=== PATIENT | male | born 1970 | race Caucasian/White ===

== ENCOUNTER 2021-04-09 09:30 | Inpatient (IN) | payer OTHER ==
[~2021-04-09] VITALS: Ht 177.8 cm; Wt 118.5 kg
--- NOTE | 2021-04-09 09:49 | NUR ---
PT TO ROOM VIA WC AND ASSISTED TO BR.
--- NOTE | 2021-04-09 10:00 | NUR ---
URINE COLLECTED/SENT TO LAB. 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 IV PLACED, BC X 1 DRAWN WITH START. IV UNABLE TO ADVANCE AND COLLAPSED WITH FLUSH-D/C'D DRESSING IN PLACE. WARM TOWELS TO FOOT APPLIED TO CLEAN. CALL LIGHT WITHIN REACH.
--- NOTE | 2021-04-09 10:21 | NUR ---
XR AT BS.
[2021-04-09] MEDS ORDERED: SODIUM CHLORIDE FLUSH 10ML SYR IVF ONE (10:30)
[2021-04-09 10:52] LABS: MICROSCOPIC INDICATED
[2021-04-09 11:02] LABS: INTERNATIONAL NORMALIZED RATIO 1.19 (0.93-1.1); PROTHROMBIN TIME 12.6 Seconds (9.6-11.5)
[2021-04-09 11:08] LABS: BASOPHILS % (AUTO) 1 % (0-1); EOSINOPHILS % (AUTO) 4 % (1-7); LYMPHOCYTES % (AUTO) 7 % (22-44); MEAN CORPUSCULAR HEMOGLOBIN 30.2 pg (27.5-34.5); MEAN CORPUSCULAR HGB CONC 33.8 g/dL (33.2-36.2); MEAN PLATELET VOLUME 8.9 fL (7.4-10.4); MONOCYTES % (AUTO) 10 % (2-9); NEUTROPHILS % (AUTO) 79 % (42-75); PLATELET COUNT 53 x10^3/uL (130-400); RED CELL DISTRIBUTION WIDTH 14.4 % (9.4-14.8)
[2021-04-09 11:20] LABS: ALANINE AMINOTRANSFERASE 46 U/L (12-78); ALBUMIN 3.4 g/dL (3.4-5.0); ANION GAP 12 mmol/L (5-15); CALCIUM 8.5 mg/dL (8.5-10.1); CHLORIDE 96 mmol/L (98-107); CREATININE 0.73 mg/dL (0.7-1.3)
[2021-04-09 11:23] LABS: ALKALINE PHOSPHATASE 87 U/L (45-117); BILIRUBIN,TOTAL 3.4 mg/dL (0.2-1.0); CREATINE KINASE, TOTAL 110 U/L (39-308); TOTAL PROTEIN 6.9 g/dL (6.4-8.2)
--- NOTE | 2021-04-09 12:05 | NUR ---
MUSCLE SPASMS TO R LEG, WARM COMPRESS APPLIED AND PT ASSISTED IN STRETCHING. PT TO CT.
[2021-04-09] MEDS ORDERED: ANTIVENIN CROTALIDAE FAB IVPB ONE (12:30)
[2021-04-09] MEDS ORDERED: SODIUM CHLORIDE IVPB ONE (12:30)
[2021-04-09] MEDS ORDERED: SERT100T32 PO (12:32)
[2021-04-09] MEDS ORDERED: CARV6.252 PO (12:32)
[2021-04-09] MEDS ORDERED: HYDR50TA99 PO (12:37)
[2021-04-09] MEDS ORDERED: TAMS-11 PO (12:37)
[2021-04-09] MEDS ORDERED: CYCL10TA2 PO (12:37)
--- NOTE | 2021-04-09 12:45 | NUR ---
MED REQUEST TO PHARMACY.
--- NOTE | 2021-04-09 13:55 | NUR ---
IV PLACED, ANTIVENIN INFUSING. CLOSE MONITORING FOR 15 MINUTES.
[2021-04-09] MEDS ORDERED: CEFTRIAXONE 2 GM in DEXTROSE 5% 50 ML IVPB ONE (14:00)
--- NOTE | 2021-04-09 14:11 | NUR ---
NO S/S OF ADVERSE REACTION OR ALLERGY. RATE INCREASED TO 250CC/HR. CALL LIGHT WITHIN REACH.
[2021-04-09] MEDS ORDERED: KETOROLAC 30 MG/1 ML IV PRN (15:00)
[2021-04-09] MEDS ORDERED: DOXYCYCLINE 100MG TABLET PO ONE (15:00)
[2021-04-09] MEDS ORDERED: HYDROcodone/APAP 5/325 TABLET PO PRN (15:00)
[2021-04-09] MEDS: HEPARIN 5,000 UNITS/ML, 1ML SQ SCH ×2 (15:00→22:27)
[2021-04-09] MEDS ORDERED: morphine SULFATE 10 MG/ML, 1ML IVPush PRN (15:00)
[2021-04-09] MEDS ORDERED: VANCOMYCIN PER PHARMACY MC PRN (15:00)
[2021-04-09] MEDS ORDERED: ONDANSETRON 2MG/ML, 2ML IVPush PRN (15:00)
[2021-04-09] MEDS ORDERED: SODIUM CHLORIDE FLUSH 10ML SYR IVF PRN (15:00)
[2021-04-09] MEDS ORDERED: ACETAMINOPHEN 325 MG TABLET PO PRN (15:00)
--- NOTE | 2021-04-09 15:23 | NUR ---
REPORT FROM CHASITY VELAZCO
--- NOTE | 2021-04-09 15:26 | NUR ---
REPORT TO WENDY QUINTERO READY FOR TRANSPORT TO FLOOR FOLLOWING SPLINT PLACEMENT. REPORT TO
[2021-04-09] MEDS ORDERED: VANCOMYCIN 2,500 MG in SODIUM CHLORIDE 0.9% 500 ML IV ONE ×2 (15:30→20:30)
[2021-04-09] MEDS ORDERED: DOXYCYCLINE 100MG TABLET ONE (15:46)
--- NOTE | 2021-04-09 16:06 | NUR ---
[employer]ION [employer] CALLED FOR UPDATE, CASE # [id number]
[2021-04-09] MEDS ORDERED: PHARMACOKINETIC MONITORING MC PRN (17:30)
[2021-04-09] MEDS ORDERED: PHARMACOKINETIC CONSULTATION MC ONE (17:30)
[2021-04-09] MEDS ORDERED: THIAMINE 200 MG in DEXTROSE 5% 50 ML IVPB ONE (19:00)
[2021-04-09] MEDS ORDERED: CHLORDIAZEPOXIDE 25 MG CAPSULE PO SCH (19:00)
[2021-04-09] MEDS ORDERED: LORazepam 1MG TABLET PO PRN (19:00)
[2021-04-09] MEDS ORDERED: FOLIC ACID 1 MG TABLET PO ONE (19:00)
[2021-04-09] MEDS ORDERED: LORazepam 2 MG/ML, 1ML IV PRN ×3 (19:00)
[2021-04-09 19:08] VITALS: BP 122/80
[2021-04-09] MEDS: CEFEPIME 1 GM in DEXTROSE 5% 50 ML IV SCH (19:49)
[2021-04-09] MEDS: CHLORDIAZEPOXIDE 25 MG CAPSULE PO SCH (20:00)
[2021-04-10] MEDS: LORazepam 1MG TABLET PO PRN ×4 (00:30→22:32)
[2021-04-10] MEDS ORDERED: CYCLOBENZAPRINE 10 MG TABLET PO PRN (01:00)
[2021-04-10] MEDS: CHLORDIAZEPOXIDE 25 MG CAPSULE PO SCH ×3 (01:51→13:53)
[2021-04-10 02:08] VITALS: BP 133/87
[2021-04-10] MEDS: hydrOXyzine 50MG TABLET PO PRN (03:22)
[2021-04-10] MEDS: CEFEPIME 1 GM in DEXTROSE 5% 50 ML IV SCH ×2 (04:06→13:28)
[2021-04-10] MEDS ORDERED: VANCOMYCIN 2,000 MG in SODIUM CHLORIDE 0.9% 500 ML IV SCH ×2 (05:00→08:30)
[2021-04-10 05:58] LABS: BASOPHILS % (AUTO) 0 % (0-1); EOSINOPHILS % (AUTO) 4 % (1-7); LYMPHOCYTES % (AUTO) 12 % (22-44); MEAN CORPUSCULAR HGB CONC 34.2 g/dL (33.2-36.2); MEAN PLATELET VOLUME 9.5 fL (7.4-10.4); MONOCYTES % (AUTO) 11 % (2-9); NEUTROPHILS % (AUTO) 73 % (42-75); PLATELET COUNT 50 x10^3/uL (130-400); RED BLOOD COUNT 4.92 x10^6/uL (4.38-5.82); RED CELL DISTRIBUTION WIDTH 14.4 % (9.4-14.8)
[2021-04-10 06:05] LABS: ALBUMIN 3.2 g/dL (3.4-5.0); ANION GAP 7 mmol/L (5-15); CALCIUM 8.4 mg/dL (8.5-10.1); CHLORIDE 99 mmol/L (98-107)
[2021-04-10 06:09] LABS: ALANINE AMINOTRANSFERASE 44 U/L (12-78); ALKALINE PHOSPHATASE 82 U/L (45-117); BILIRUBIN,TOTAL 2.1 mg/dL (0.2-1.0); CREATININE 0.74 mg/dL (0.7-1.3); TOTAL PROTEIN 6.7 g/dL (6.4-8.2)
[2021-04-10] MEDS: HEPARIN 5,000 UNITS/ML, 1ML SQ SCH ×2 (06:38→17:44)
[2021-04-10 07:05] VITALS: BP 115/71
[2021-04-10] MEDS: TAMSULOSIN 0.4 MG CAP.ER.24H PO SCH (08:35)
[2021-04-10] MEDS: MULTIVITAMINS/MINERALS TABLET PO SCH (08:35)
[2021-04-10] MEDS: CARVEDILOL 6.25 MG TABLET PO SCH ×2 (08:35→21:09)
[2021-04-10] MEDS: SERTRALINE 100MG TABLET PO SCH (08:35)
[2021-04-10 14:15] VITALS: BP 116/74
[2021-04-10] MEDS: LORazepam 0.5MG TABLET PO PRN (18:33)
[2021-04-10] MEDS: THIAMINE 100 MG in DEXTROSE 5% 50 ML IVPB SCH (18:33)
[2021-04-10] MEDS ORDERED: CHLORDIAZEPOXIDE 25 MG CAPSULE PO SCH ×2 (19:00→20:30)
[2021-04-10 19:58] VITALS: BP 124/85
[2021-04-10] MEDS: DIAZEPAM 2 MG TABLET PO SCH (21:09)
[2021-04-10] MEDS: HYDROcodone/APAP 5/325 TABLET PO PRN (21:12)
[2021-04-11 01:11] VITALS: BP 135/89
[2021-04-11] MEDS: HEPARIN 5,000 UNITS/ML, 1ML SQ SCH ×3 (01:52→17:59)
[2021-04-11] MEDS: LORazepam 1MG TABLET PO PRN ×4 (01:52→22:03)
[2021-04-11 05:50] LABS: MEAN CORPUSCULAR HEMOGLOBIN 31.1 pg (27.5-34.5); MEAN CORPUSCULAR HGB CONC 34.1 g/dL (33.2-36.2); MEAN PLATELET VOLUME 9.1 fL (7.4-10.4); RED BLOOD COUNT 4.54 x10^6/uL (4.38-5.82); RED CELL DISTRIBUTION WIDTH 14.7 % (9.4-14.8)
[2021-04-11 05:57] LABS: INTERNATIONAL NORMALIZED RATIO 1.11 (0.93-1.1); PROTHROMBIN TIME 11.8 Seconds (9.6-11.5)
[2021-04-11 06:01] LABS: ANION GAP 6 mmol/L (5-15); CALCIUM 8.7 mg/dL (8.5-10.1); CHLORIDE 103 mmol/L (98-107)
[2021-04-11 06:02] LABS: CREATININE 0.67 mg/dL (0.7-1.3)
[2021-04-11 06:03] LABS: PLATELET COUNT 45 x10^3/uL (130-400)
[2021-04-11 06:35] LABS: BAND#(MANUAL) 0.04 x10^3/uL; BANDS%(MANUAL) 2 % (0-7); BASOS#(MANUAL) 0.02 x10^3/uL (0-0.1); BASOS% (MANUAL) 1 % (0-1); EOS#(MANUAL) 0.05 x10^3/uL (0.0-0.4); EOS% (MANUAL) 3 % (1-7); LYMPHS% (MANUAL) 11 % (22-44); SEG#(MANUAL) 1.13 x10^3/uL (1.8-6.8); SEGS% (MANUAL) 63 % (42-75)
[2021-04-11 06:36] LABS: <RBC MORPHOLOGY> NORMAL; MONOS#(MANUAL) 0.31 x10^3/uL (0.3-2.7); MONOS% (MANUAL) 17 % (2-9); REACTIVE LYMPHS # (MANUAL) 0.05 x10^3/uL (0-0); REACTIVE LYMPHS % (MANUAL) 3 % (0-0)
[2021-04-11 06:37] LABS: <PLATELET ESTIMATE> DECREASED; <PLT MORPHOLOGY> NORMAL PLT MORPH
[2021-04-11 07:54] VITALS: BP 120/73
[2021-04-11] MEDS: CARVEDILOL 6.25 MG TABLET PO SCH ×2 (08:17→22:03)
[2021-04-11] MEDS: SERTRALINE 100MG TABLET PO SCH (08:17)
[2021-04-11] MEDS: DIAZEPAM 2 MG TABLET PO SCH ×3 (08:17→22:03)
[2021-04-11] MEDS: LORazepam 0.5MG TABLET PO PRN (08:17)
[2021-04-11] MEDS: TAMSULOSIN 0.4 MG CAP.ER.24H PO SCH (08:17)
[2021-04-11] MEDS: MULTIVITAMINS/MINERALS TABLET PO SCH (08:18)
[2021-04-11 13:37] VITALS: BP 122/86
[2021-04-11] MEDS: POLYETHYLENE GLYCOL 17 GM PACKET PO SCH (16:31)
[2021-04-11] MEDS: SENNA/DOCUSATE TABLET PO SCH ×2 (16:31→22:03)
[2021-04-11] MEDS: CYCLOBENZAPRINE 10 MG TABLET PO PRN (17:59)
[2021-04-11] MEDS: hydrOXyzine 50MG TABLET PO PRN (17:59)
[2021-04-11] MEDS: THIAMINE 100 MG in DEXTROSE 5% 50 ML IVPB SCH (18:35)
[2021-04-11 20:28] VITALS: BP 127/86
[2021-04-12 02:18] VITALS: BP 138/85
[2021-04-12] MEDS: HEPARIN 5,000 UNITS/ML, 1ML SQ SCH ×3 (02:20→18:42)
[2021-04-12] MEDS: LORazepam 0.5MG TABLET PO PRN (02:20)
[2021-04-12 05:23] LABS: MEAN CORPUSCULAR HEMOGLOBIN 30.8 pg (27.5-34.5); MEAN CORPUSCULAR HGB CONC 33.6 g/dL (33.2-36.2); MEAN PLATELET VOLUME 8.7 fL (7.4-10.4); PLATELET COUNT 44 x10^3/uL (130-400); RED BLOOD COUNT 4.51 x10^6/uL (4.38-5.82); RED CELL DISTRIBUTION WIDTH 14.7 % (9.4-14.8)
[2021-04-12 06:27] LABS: BASOS#(MANUAL) 0.02 x10^3/uL (0-0.1); BASOS% (MANUAL) 1 % (0-1); EOS#(MANUAL) 0.08 x10^3/uL (0.0-0.4); EOS% (MANUAL) 4 % (1-7); LYMPH#(MANUAL) 0.36 x10^3/uL (1-3.4); LYMPHS% (MANUAL) 17 % (22-44); MONOS% (MANUAL) 19 % (2-9); SEG#(MANUAL) 1.24 x10^3/uL (1.8-6.8); SEGS% (MANUAL) 59 % (42-75)
[2021-04-12 06:30] LABS: <PLATELET ESTIMATE> DECREASED; <PLT MORPHOLOGY> NORMAL PLT MORPH; <RBC MORPHOLOGY> NORMAL
[2021-04-12 06:58] LABS: INTERNATIONAL NORMALIZED RATIO 1.1 (0.93-1.1); PROTHROMBIN TIME 11.7 Seconds (9.6-11.5)
[2021-04-12 07:05] VITALS: BP 134/96
[2021-04-12] MEDS: POLYETHYLENE GLYCOL 17 GM PACKET PO SCH (09:19)
[2021-04-12] MEDS: TAMSULOSIN 0.4 MG CAP.ER.24H PO SCH (09:24)
[2021-04-12] MEDS: SENNA/DOCUSATE TABLET PO SCH ×2 (09:24→20:18)
[2021-04-12] MEDS: CARVEDILOL 6.25 MG TABLET PO SCH ×2 (09:24→20:18)
[2021-04-12] MEDS: MULTIVITAMINS/MINERALS TABLET PO SCH (09:24)
[2021-04-12] MEDS: DIAZEPAM 2 MG TABLET PO SCH ×3 (09:24→20:18)
[2021-04-12] MEDS: SERTRALINE 100MG TABLET PO SCH (09:24)
[2021-04-12 13:19] VITALS: BP 131/94
[2021-04-12 20:16] VITALS: BP 134/78
[2021-04-12] MEDS: THIAMINE 100 MG in DEXTROSE 5% 50 ML IVPB SCH (20:17)
[2021-04-13 02:08] VITALS: BP 134/93
[2021-04-13] MEDS: HEPARIN 5,000 UNITS/ML, 1ML SQ SCH ×3 (02:08→16:55)
[2021-04-13] MEDS: HYDROcodone/APAP 5/325 TABLET PO PRN ×2 (02:14→16:06)
[2021-04-13 07:24] VITALS: BP 158/103
[2021-04-13 07:59] VITALS: BP 137/86
[2021-04-13] MEDS: SENNA/DOCUSATE TABLET PO SCH ×2 (08:02→21:49)
[2021-04-13] MEDS: TAMSULOSIN 0.4 MG CAP.ER.24H PO SCH (08:03)
[2021-04-13] MEDS: CARVEDILOL 6.25 MG TABLET PO SCH ×2 (08:03→21:49)
[2021-04-13] MEDS: POLYETHYLENE GLYCOL 17 GM PACKET PO SCH (08:03)
[2021-04-13] MEDS: MULTIVITAMINS/MINERALS TABLET PO SCH (08:04)
[2021-04-13] MEDS: DIAZEPAM 2 MG TABLET PO SCH ×3 (08:04→21:49)
[2021-04-13] MEDS: SERTRALINE 100MG TABLET PO SCH (08:04)
[2021-04-13] MEDS: hydrOXyzine 50MG TABLET PO PRN (08:12)
[2021-04-13 13:03] VITALS: BP 105/77
[2021-04-13] MEDS ORDERED: DIAZEPAM 5 MG TABLET ONE (15:58)
[2021-04-13 18:47] VITALS: BP 118/85
[2021-04-13] MEDS: THIAMINE 100 MG in DEXTROSE 5% 50 ML IVPB SCH (21:48)
[2021-04-14 01:18] VITALS: BP 137/90
[2021-04-14] MEDS: HEPARIN 5,000 UNITS/ML, 1ML SQ SCH (01:34)
[2021-04-14] MEDS: HYDROcodone/APAP 5/325 TABLET PO PRN ×3 (01:35→23:35)
[2021-04-14] MEDS: hydrOXyzine 50MG TABLET PO PRN ×2 (01:36→23:22)
[2021-04-14 05:32] LABS: MEAN CORPUSCULAR HEMOGLOBIN 30.4 pg (27.5-34.5); MEAN CORPUSCULAR HGB CONC 33.6 g/dL (33.2-36.2); MEAN PLATELET VOLUME 9.3 fL (7.4-10.4); RED BLOOD COUNT 4.81 x10^6/uL (4.38-5.82); RED CELL DISTRIBUTION WIDTH 15.6 % (9.4-14.8)
[2021-04-14 05:36] LABS: CHLORIDE 105 mmol/L (98-107)
[2021-04-14 05:43] LABS: ALANINE AMINOTRANSFERASE 42 U/L (12-78); ALBUMIN 2.8 g/dL (3.4-5.0); ALKALINE PHOSPHATASE 70 U/L (45-117); ANION GAP 5 mmol/L (5-15); BILIRUBIN,TOTAL 1.1 mg/dL (0.2-1.0); CALCIUM 8.5 mg/dL (8.5-10.1); CREATININE 0.56 mg/dL (0.7-1.3); PLATELET COUNT 47 x10^3/uL (130-400); TOTAL PROTEIN 6.4 g/dL (6.4-8.2)
[2021-04-14 06:20] LABS: <PLATELET ESTIMATE> DECREASED; <PLT MORPHOLOGY> NORMAL PLT MORPH; <RBC MORPHOLOGY> NORMAL; BASOS#(MANUAL) 0.02 x10^3/uL (0-0.1); BASOS% (MANUAL) 1 % (0-1); EOS#(MANUAL) 0.07 x10^3/uL (0.0-0.4); EOS% (MANUAL) 3 % (1-7); LYMPH#(MANUAL) 0.55 x10^3/uL (1-3.4); LYMPHS% (MANUAL) 25 % (22-44); MONOS#(MANUAL) 0.46 x10^3/uL (0.3-2.7); MONOS% (MANUAL) 21 % (2-9); SEGS% (MANUAL) 50 % (42-75)
[2021-04-14 07:09] VITALS: BP 131/75
[2021-04-14] MEDS: DIAZEPAM 2 MG TABLET PO SCH (07:42)
[2021-04-14] MEDS: SERTRALINE 100MG TABLET PO SCH (07:42)
[2021-04-14] MEDS: SENNA/DOCUSATE TABLET PO SCH ×2 (07:42→23:21)
[2021-04-14] MEDS: CARVEDILOL 6.25 MG TABLET PO SCH ×3 (07:42→23:20)
[2021-04-14] MEDS: MULTIVITAMINS/MINERALS TABLET PO SCH (07:42)
[2021-04-14] MEDS: TAMSULOSIN 0.4 MG CAP.ER.24H PO SCH (07:43)
[2021-04-14] MEDS: POLYETHYLENE GLYCOL 17 GM PACKET PO SCH (07:43)
[2021-04-14 09:01] VITALS: BP 105/75
[2021-04-14] MEDS: FOLIC ACID 1 MG TABLET PO SCH (09:03)
[2021-04-14] MEDS: THIAMINE 100MG TABLET PO SCH ×2 (09:03→23:19)
[2021-04-14 14:01] VITALS: BP 120/86
[2021-04-14 19:46] VITALS: BP 96/60
[2021-04-14 23:10] VITALS: BP 135/92
[2021-04-15 02:30] VITALS: BP 141/83
[2021-04-15] MEDS: HYDROcodone/APAP 5/325 TABLET PO PRN ×3 (04:15→22:32)
[2021-04-15 06:06] LABS: BASOPHILS % (AUTO) 1 % (0-1); EOSINOPHILS % (AUTO) 4 % (1-7); LYMPHOCYTES % (AUTO) 19 % (22-44); MEAN CORPUSCULAR HEMOGLOBIN 30.3 pg (27.5-34.5); MEAN CORPUSCULAR HGB CONC 33.3 g/dL (33.2-36.2); MEAN PLATELET VOLUME 9.4 fL (7.4-10.4); MONOCYTES % (AUTO) 21 % (2-9); NEUTROPHILS % (AUTO) 55 % (42-75); PLATELET COUNT 62 x10^3/uL (130-400); RED BLOOD COUNT 5.03 x10^6/uL (4.38-5.82); RED CELL DISTRIBUTION WIDTH 15.4 % (9.4-14.8)
[2021-04-15 06:21] LABS: ANION GAP 2 mmol/L (5-15); CHLORIDE 102 mmol/L (98-107)
[2021-04-15 06:27] LABS: ALANINE AMINOTRANSFERASE 40 U/L (12-78); ALKALINE PHOSPHATASE 69 U/L (45-117); BILIRUBIN,TOTAL 1.6 mg/dL (0.2-1.0); CREATININE 0.68 mg/dL (0.7-1.3); TOTAL PROTEIN 6.9 g/dL (6.4-8.2)
[2021-04-15] MEDS: MULTIVITAMINS/MINERALS TABLET PO SCH (08:17)
[2021-04-15] MEDS: FOLIC ACID 1 MG TABLET PO SCH (08:17)
[2021-04-15] MEDS: CARVEDILOL 6.25 MG TABLET PO SCH ×2 (08:17→22:29)
[2021-04-15] MEDS: TAMSULOSIN 0.4 MG CAP.ER.24H PO SCH (08:17)
[2021-04-15] MEDS: THIAMINE 100MG TABLET PO SCH ×2 (08:18→22:29)
[2021-04-15] MEDS: SENNA/DOCUSATE TABLET PO SCH ×2 (08:18→22:28)
[2021-04-15] MEDS: SERTRALINE 100MG TABLET PO SCH (08:18)
[2021-04-15] MEDS: POLYETHYLENE GLYCOL 17 GM PACKET PO SCH (08:19)
[2021-04-15 10:43] VITALS: BP 110/64
[2021-04-15 13:55] VITALS: BP 94/68
[2021-04-15 19:15] VITALS: BP 130/86
[2021-04-15] MEDS: CYCLOBENZAPRINE 10 MG TABLET PO PRN (22:32)
[2021-04-16] VITALS (7 sets, daily range): BP systolic 104–134; BP diastolic 61–83
[2021-04-16] MEDS: HYDROcodone/APAP 5/325 TABLET PO PRN ×2 (03:01→20:14)
[2021-04-16] MEDS: hydrOXyzine 50MG TABLET PO PRN ×2 (03:02→15:24)
[2021-04-16] MEDS: MULTIVITAMINS/MINERALS TABLET PO SCH (09:00)
[2021-04-16 09:36] LABS: ANION GAP 5 mmol/L (5-15); CALCIUM 8.7 mg/dL (8.5-10.1); CHLORIDE 104 mmol/L (98-107); CREATININE 0.82 mg/dL (0.7-1.3)
[2021-04-16] MEDS: FOLIC ACID 1 MG TABLET PO SCH (09:47)
[2021-04-16] MEDS: TAMSULOSIN 0.4 MG CAP.ER.24H PO SCH (09:47)
[2021-04-16] MEDS: THIAMINE 100MG TABLET PO SCH ×2 (09:47→20:15)
[2021-04-16] MEDS: POLYETHYLENE GLYCOL 17 GM PACKET PO SCH (09:47)
[2021-04-16] MEDS: SENNA/DOCUSATE TABLET PO SCH ×2 (09:48→20:15)
[2021-04-16] MEDS: SERTRALINE 100MG TABLET PO SCH (09:48)
[2021-04-16] MEDS: CARVEDILOL 6.25 MG TABLET PO SCH ×2 (09:48→20:15)
[2021-04-16] MEDS: CYCLOBENZAPRINE 10 MG TABLET PO PRN ×2 (09:48→23:26)
[2021-04-16] MEDS: IBUPROFEN 600 MG TABLET PO PRN (20:14)
[2021-04-17 00:19] VITALS: BP 104/69
[2021-04-17 02:43] VITALS: BP 119/79
[2021-04-17] MEDS: HYDROcodone/APAP 5/325 TABLET PO PRN ×3 (02:44→22:21)
[2021-04-17 05:46] LABS: MEAN CORPUSCULAR HEMOGLOBIN 30.3 pg (27.5-34.5); MEAN CORPUSCULAR HGB CONC 33.3 g/dL (33.2-36.2); MEAN PLATELET VOLUME 9.1 fL (7.4-10.4); PLATELET COUNT 79 x10^3/uL (130-400); RED BLOOD COUNT 4.75 x10^6/uL (4.38-5.82); RED CELL DISTRIBUTION WIDTH 15.2 % (9.4-14.8)
[2021-04-17 05:59] LABS: ANION GAP 3 mmol/L (5-15); CALCIUM 9.1 mg/dL (8.5-10.1); CHLORIDE 104 mmol/L (98-107)
[2021-04-17 06:00] LABS: CREATININE 0.97 mg/dL (0.7-1.3)
[2021-04-17 07:21] LABS: <PLATELET ESTIMATE> DECREASED; <PLT MORPHOLOGY> NORMAL PLT MORPH; <RBC MORPHOLOGY> NORMAL; EOS#(MANUAL) 0.06 x10^3/uL (0.0-0.4); EOS% (MANUAL) 3 % (1-7); LYMPHS% (MANUAL) 21 % (22-44); MONOS#(MANUAL) 0.42 x10^3/uL (0.3-2.7); MONOS% (MANUAL) 22 % (2-9); SEG#(MANUAL) 1.03 x10^3/uL (1.8-6.8); SEGS% (MANUAL) 54 % (42-75)
[2021-04-17 07:46] VITALS: BP 123/74
[2021-04-17] MEDS: MULTIVITAMINS/MINERALS TABLET PO SCH (09:00)
[2021-04-17] MEDS: FOLIC ACID 1 MG TABLET PO SCH (09:00)
[2021-04-17] MEDS: SERTRALINE 100MG TABLET PO SCH (10:00)
[2021-04-17] MEDS: POLYETHYLENE GLYCOL 17 GM PACKET PO SCH (10:00)
[2021-04-17] MEDS: SENNA/DOCUSATE TABLET PO SCH ×2 (10:00→20:00)
[2021-04-17] MEDS: THIAMINE 100MG TABLET PO SCH ×2 (10:00→20:00)
[2021-04-17] MEDS: CARVEDILOL 6.25 MG TABLET PO SCH (10:12)
[2021-04-17] MEDS: IBUPROFEN 600 MG TABLET PO PRN (10:12)
[2021-04-17] MEDS: TAMSULOSIN 0.4 MG CAP.ER.24H PO SCH (10:12)
[2021-04-17 14:21] VITALS: BP 100/57
[2021-04-17] MEDS: CARVEDILOL 3.125 MG TABLET PO SCH (18:07)
[2021-04-17 19:50] VITALS: BP 109/76
[2021-04-17] MEDS: CYCLOBENZAPRINE 10 MG TABLET PO PRN (22:20)
[2021-04-17] MEDS: hydrOXyzine 50MG TABLET PO PRN (22:21)
[2021-04-18 00:39] VITALS: BP 122/75
[2021-04-18 04:25] LABS: MEAN CORPUSCULAR HEMOGLOBIN 30.7 pg (27.5-34.5); MEAN CORPUSCULAR HGB CONC 33.6 g/dL (33.2-36.2); MEAN PLATELET VOLUME 10.3 fL (7.4-10.4); PLATELET COUNT 96 x10^3/uL (130-400); RED BLOOD COUNT 4.81 x10^6/uL (4.38-5.82); RED CELL DISTRIBUTION WIDTH 15.4 % (9.4-14.8)
[2021-04-18 04:43] LABS: ANION GAP 2 mmol/L (5-15); CALCIUM 8.6 mg/dL (8.5-10.1); CHLORIDE 104 mmol/L (98-107)
[2021-04-18 04:47] LABS: ALANINE AMINOTRANSFERASE 37 U/L (12-78); ALKALINE PHOSPHATASE 71 U/L (45-117); CREATININE 0.83 mg/dL (0.7-1.3); TOTAL PROTEIN 6.8 g/dL (6.4-8.2)
[2021-04-18 06:13] LABS: BAND#(MANUAL) 0.02 x10^3/uL; BANDS%(MANUAL) 1 % (0-7); BASOS#(MANUAL) 0.02 x10^3/uL (0-0.1); BASOS% (MANUAL) 1 % (0-1); EOS#(MANUAL) 0.08 x10^3/uL (0.0-0.4); EOS% (MANUAL) 4 % (1-7); LYMPH#(MANUAL) 0.34 x10^3/uL (1-3.4); LYMPHS% (MANUAL) 16 % (22-44); MONOS#(MANUAL) 0.34 x10^3/uL (0.3-2.7); MONOS% (MANUAL) 16 % (2-9); SEGS% (MANUAL) 62 % (42-75)
[2021-04-18 06:14] LABS: <PLATELET ESTIMATE> DECREASED; <PLT MORPHOLOGY> NORMAL PLT MORPH; <RBC MORPHOLOGY> NORMAL
[2021-04-18] MEDS: CARVEDILOL 3.125 MG TABLET PO SCH ×2 (06:35→18:39)
[2021-04-18] MEDS: IBUPROFEN 600 MG TABLET PO PRN (06:35)
[2021-04-18 06:37] VITALS: BP 154/90
[2021-04-18 07:28] VITALS: BP 121/78
[2021-04-18] MEDS: THIAMINE 100MG TABLET PO SCH ×2 (10:21→19:49)
[2021-04-18] MEDS: POLYETHYLENE GLYCOL 17 GM PACKET PO SCH (10:21)
[2021-04-18] MEDS: TAMSULOSIN 0.4 MG CAP.ER.24H PO SCH (10:21)
[2021-04-18] MEDS: SENNA/DOCUSATE TABLET PO SCH ×2 (10:21→19:49)
[2021-04-18] MEDS: SERTRALINE 100MG TABLET PO SCH (10:21)
[2021-04-18] MEDS: MULTIVITAMINS/MINERALS TABLET PO SCH (10:21)
[2021-04-18] MEDS: FOLIC ACID 1 MG TABLET PO SCH (10:22)
[2021-04-18 15:05] VITALS: BP 132/87
[2021-04-18] MEDS: hydrOXyzine 50MG TABLET PO PRN (16:14)
[2021-04-18 19:35] VITALS: BP 106/68
[2021-04-18] MEDS: HYDROcodone/APAP 5/325 TABLET PO PRN (19:51)
[2021-04-19] MEDS: CYCLOBENZAPRINE 10 MG TABLET PO PRN (00:18)
[2021-04-19] MEDS: HYDROcodone/APAP 5/325 TABLET PO PRN ×4 (00:18→16:26)
[2021-04-19] MEDS: hydrOXyzine 50MG TABLET PO PRN ×4 (00:18→16:24)
[2021-04-19 00:19] VITALS: BP 124/82
[2021-04-19] MEDS: CARVEDILOL 3.125 MG TABLET PO SCH ×2 (06:06→18:03)
[2021-04-19 09:45] VITALS: BP 146/88
[2021-04-19] MEDS: SENNA/DOCUSATE TABLET PO SCH (09:51)
[2021-04-19] MEDS: THIAMINE 100MG TABLET PO SCH (09:51)
[2021-04-19] MEDS: MULTIVITAMINS/MINERALS TABLET PO SCH (09:51)
[2021-04-19] MEDS: TAMSULOSIN 0.4 MG CAP.ER.24H PO SCH (09:51)
[2021-04-19] MEDS: FOLIC ACID 1 MG TABLET PO SCH (09:51)
[2021-04-19] MEDS: SERTRALINE 100MG TABLET PO SCH (09:51)
[2021-04-19] MEDS: POLYETHYLENE GLYCOL 17 GM PACKET PO SCH (09:54)
[2021-04-19] MEDS ORDERED: HYDR50TA99 PO (12:00)
[2021-04-19] MEDS ORDERED: TAMS-11 PO (12:00)
[2021-04-19] MEDS ORDERED: SERT100T32 PO (12:00)
[2021-04-19] MEDS ORDERED: CARV3.1212 PO (12:00)
[2021-04-19] MEDS ORDERED: HYDR-2214 PO (12:00)
[2021-04-19 16:29] VITALS: BP 117/77
== END 2021-04-19 18:13 | disposition home or self-care (01) | DRG 563 ==
LOC: SUATTDRO 12:49 → ED 13:41 → EDIP 13:42 → ED 14:08 → 4NE 16:55 → 4EST 04-16 17:28
PROVIDERS: ADMIT Family Medicine; ATTEND Internal Medicine
DX: S92.342A Displaced fracture of fourth metatarsal bone, left foot, initial encounter for closed fracture (principal); F10.239 Alcohol dependence with withdrawal, unspecified; R17 Unspecified jaundice; E87.1 Hypo-osmolality and hyponatremia; D61.818 Other pancytopenia; E88.09 Other disorders of plasma-protein metabolism, not elsewhere classified; F12.90 Cannabis use, unspecified, uncomplicated; F32.9 Major depressive disorder, single episode, unspecified; F41.1 Generalized anxiety disorder; I10 Essential (primary) hypertension; I49.3 Ventricular premature depolarization; N40.0 Benign prostatic hyperplasia without lower urinary tract symptoms; W18.39XA Other fall on same level, initial encounter; T63.001A Toxic effect of unspecified snake venom, accidental (unintentional), initial encounter; Z59.0 Homelessness; Y93.89 Activity, other specified; Y92.89 Other specified places as the place of occurrence of the external cause; Y99.8 Other external cause status
CPT/HCPCS: 36415; 80048; 80053; 81001; 82550; 83735; 84443; 85025; 85384; 85610; 85730; 87040; 87086; 93005; 93306; 96365; 96375; G0378; J0692; J0696; J0840; J1644; J3370; J3411; J7040; J7050